=== PATIENT | female | born 1960 | race African-American/Black ===

== ENCOUNTER 2020-01-09 17:36 | Observation (INO) | payer OTHER ==
[2020-01-09] MEDS ORDERED: SODIUM CHLORIDE 1,000 ML IV STA (19:35)
[2020-01-09] MEDS ORDERED: chlordiazePOXIDE HCL 25 MG CAPSULE PO ONE (19:35)
[2020-01-09 20:07] LABS: EOS % 2.6 % (0-4.5); HEMATOCRIT 37.2 % (32.4-45.2); HEMOGLOBIN 11.9 GM/dL (10.7-15.3); LYMPH % 36.5 % (8-40); MCH 30.1 pg (25.7-33.7); MEAN CELL VOLUME 93.9 fl (80-96); MEAN PLT VOLUME 10.8 fl (7.5-11.1); MONO % 5.7 % (3.8-10.2); NEUT % 54.2 % (42.8-82.8); PLATELET COUNT 130 K/MM3 (134-434); RBC 3.97 M/mm3 (3.60-5.2); RDW 14.3 % (11.6-15.6); WHITE BLOOD COUNT 5.1 K/mm3 (4.0-10.0)
[2020-01-09] MEDS ORDERED: chlordiazePOXIDE HCL 25 MG CAPSULE ONE (20:12)
[2020-01-09] MEDS ORDERED: LORazepam 2 MG/ML SDV VIAL ONE (20:13)
[2020-01-09 20:39] LABS: CHLORIDE 105 mmol/L (98-107); POTASSIUM 4.1 mmol/L (3.5-5.1); SODIUM 139 mmol/L (136-145)
[2020-01-09 20:41] LABS: ALBUMIN 4.2 g/dl (3.4-5.0); CALCIUM 9.7 mg/dL (8.5-10.1)
[2020-01-09 20:42] LABS: ANION GAP 6 MMOL/L (8-16); BLOOD UREA NITROGEN 17.8 mg/dL (7-18); CO2 29 mmol/L (21-32); GLUCOSE,RANDOM 84 mg/dL (74-106)
[2020-01-09 20:44] LABS: SGPT/ALT 39 U/L (13-61)
[2020-01-09 20:45] LABS: CREATININE 0.9 mg/dL (0.55-1.3); SGOT/AST 26 U/L (15-37)
[2020-01-09 20:46] LABS: BILIRUBIN,TOTAL 1.4 mg/dL (0.2-1); TOT PROT 7.4 g/dl (6.4-8.2)
[2020-01-09 20:47] LABS: ALK PHOS 98 U/L (45-117)
[2020-01-09] MEDS ORDERED: LABETALOL HCL 5 MG/1 ML (100MG/20 ML VIAL) IVPUSH ONE (23:52)
[2020-01-10] MEDS ORDERED: chlordiazePOXIDE HCL 25 MG CAPSULE PO PRN (00:31)
[2020-01-10] MEDS ORDERED: chlordiazePOXIDE HCL 25 MG CAPSULE PO SCH (05:00)
[2020-01-10] MEDS ORDERED: chlordiazePOXIDE HCL 25 MG CAPSULE ONE (05:08)
[2020-01-10 07:04] LABS: BASO % 1.2 % (0-2.0); EOS % 4.3 % (0-4.5); HEMATOCRIT 37.4 % (32.4-45.2); HEMOGLOBIN 12.1 GM/dL (10.7-15.3); LYMPH % 35.9 % (8-40); MCH 30.4 pg (25.7-33.7); MCHC 32.3 g/dl (32.0-36.0); MEAN CELL VOLUME 94.2 fl (80-96); MEAN PLT VOLUME 10.8 fl (7.5-11.1); MONO % 5.3 % (3.8-10.2); NEUT % 53.3 % (42.8-82.8); PLATELET COUNT 129 K/MM3 (134-434); RBC 3.97 M/mm3 (3.60-5.2); RDW 14.3 % (11.6-15.6); WHITE BLOOD COUNT 3.7 K/mm3 (4.0-10.0)
[2020-01-10 07:44] LABS: POTASSIUM 4.2 mmol/L (3.5-5.1)
[2020-01-10 07:49] LABS: CALCIUM 9.2 mg/dL (8.5-10.1)
[2020-01-10 07:50] LABS: ALBUMIN 3.5 g/dl (3.4-5.0); BLOOD UREA NITROGEN 13.2 mg/dL (7-18); MAGNESIUM 2.1 mg/dL (1.8-2.4)
[2020-01-10 07:53] LABS: CREATININE 0.8 mg/dL (0.55-1.3); PHOSPHOROUS 4.3 mg/dL (2.5-4.9)
[2020-01-10 07:54] LABS: BILIRUBIN,TOTAL 1.3 mg/dL (0.2-1); TOT PROT 6.4 g/dl (6.4-8.2)
[2020-01-10] MEDS ORDERED: amLODIPine BESYLATE 10 MG TABLET (FP) PO ONE (08:02)
[2020-01-10] MEDS ORDERED: amLODIPine BESYLATE 5 MG TABLET (FP) ONE (09:05)
[2020-01-10] MEDS ORDERED: PT OWN MED DRAWER 7, Y5N ONE (09:35)
[2020-01-10] MEDS ORDERED: cloNIDine HCL 0.1 MG TABLET ONE (09:48)
[2020-01-10] MEDS ORDERED: FOLIC ACID 1 MG TABLET (FP) ONE (09:49)
[2020-01-10] MEDS ORDERED: ENOXAPARIN NA (PORCINE) 40 MG/0.4 ML DISP.SYRIN SQ ONE (09:49)
[2020-01-10] MEDS ORDERED: THIAMINE HCL 100 MG TABLET (FP) ONE (09:50)
[2020-01-10] MEDS ORDERED: MULTIVITAMINS (DAILY MVI) TABLET (FP) ONE (09:50)
[2020-01-10] MEDS ORDERED: FOLIC ACID 1 MG TABLET (FP) PO SCH (10:00)
[2020-01-10] MEDS ORDERED: cloNIDine HCL 0.1 MG TABLET PO SCH (10:00)
[2020-01-10] MEDS ORDERED: ENOXAPARIN NA (PORCINE) 40 MG/0.4 ML DISP.SYRIN SQ SCH (10:00)
[2020-01-10] MEDS ORDERED: MULTIVITAMINS (DAILY MVI) TABLET (FP) PO SCH (10:00)
[2020-01-10] MEDS ORDERED: THIAMINE HCL 100 MG TABLET (FP) PO SCH (10:00)
[2020-01-10] MEDS ORDERED: NICOTINE 7 MG/24 HOURS TOPICAL PATCH TD SCH (10:00)
[2020-01-10 11:13] LABS: URINE BARBITURATES NEGATIVE ng/ml (CUTOFF=200)
[2020-01-10 11:18] LABS: COCAINE, UR NEGATIVE ng/ml (CUTOFF=300); METHADONE, UR NEGATIVE ng/ml (CUTOFF=300); OPIATES, URI NEGATIVE ng/ml (CUTOFF=300); PHENCYCLIDINE,URINE NEGATIVE ng/ml (CUTOFF=25); URINE AMPHETAMINES NEGATIVE ng/ml (CUTOFF=500)
[2020-01-10 11:32] LABS: URINE BENZODIAZEPINES POSITIVE ng/ml (CUTOFF=200)
[2020-01-10 15:03] VITALS: BMI 18.3
[2020-01-10] MEDS: LABETALOL HCL 100 MG TABLET (FP) PO SCH ×2 (20:12→23:08)
[2020-01-10] MEDS: ATORVASTATIN CA 20 MG TABLET (FP) PO SCH ×2 (20:12→23:08)
[2020-01-10] MEDS ORDERED: LABETALOL HCL 200 MG TABLET (FP) PO SCH ×2 (22:00)
[2020-01-10] MEDS ORDERED: ATORVASTATIN CA 20 MG TABLET (FP) PO SCH (22:00)
[2020-01-11] MEDS ORDERED: chlordiazePOXIDE HCL 25 MG CAPSULE PO SCH (05:00)
[2020-01-11 08:18] LABS: BASO % 0.8 % (0-2.0); EOS % 4.1 % (0-4.5); HEMATOCRIT 35.4 % (32.4-45.2); HEMOGLOBIN 11.6 GM/dL (10.7-15.3); LYMPH % 35.6 % (8-40); MCH 30.6 pg (25.7-33.7); MCHC 32.6 g/dl (32.0-36.0); MEAN CELL VOLUME 93.9 fl (80-96); MEAN PLT VOLUME 10.4 fl (7.5-11.1); NEUT % 52.5 % (42.8-82.8); PLATELET COUNT 124 K/MM3 (134-434); RBC 3.78 M/mm3 (3.60-5.2); WHITE BLOOD COUNT 4.4 K/mm3 (4.0-10.0)
[2020-01-11 08:41] LABS: POTASSIUM 4.6 mmol/L (3.5-5.1)
[2020-01-11 08:43] LABS: ALBUMIN 3.6 g/dl (3.4-5.0); BLOOD UREA NITROGEN 15.6 mg/dL (7-18); CALCIUM 9.4 mg/dL (8.5-10.1)
[2020-01-11 08:46] LABS: BILIRUBIN,DIRECT 0.2 mg/dL (0.0-0.2); CREATININE 0.9 mg/dL (0.55-1.3)
[2020-01-11 08:48] LABS: BILIRUBIN,TOTAL 0.8 mg/dL (0.2-1); TOT PROT 6.4 g/dl (6.4-8.2)
[2020-01-11] MEDS: LABETALOL HCL 100 MG TABLET (FP) PO SCH (09:30)
[2020-01-11] MEDS ORDERED: amLODIPine BESYLATE 10 MG TABLET (FP) PO SCH ×2 (10:00)
[2020-01-11] MEDS ORDERED: MULTIVITAMINS (DAILY MVI) TABLET (FP) PO SCH (10:00)
[2020-01-11] MEDS ORDERED: NICOTINE 7 MG/24 HOURS TOPICAL PATCH TD SCH (10:00)
[2020-01-11] MEDS ORDERED: ENOXAPARIN NA (PORCINE) 40 MG/0.4 ML DISP.SYRIN SQ SCH (10:00)
[2020-01-11] MEDS ORDERED: THIAMINE HCL 100 MG TABLET (FP) PO SCH (10:00)
[2020-01-11] MEDS ORDERED: FOLIC ACID 1 MG TABLET (FP) PO SCH (10:00)
[2020-01-11 15:36] VITALS: BP 154/64; PULSE 92; TEMP 98.4
[2020-01-12] MEDS ORDERED: chlordiazePOXIDE HCL 10 MG CAPSULE PO PRN
[2020-01-12] MEDS ORDERED: chlordiazePOXIDE HCL 10 MG CAPSULE PO SCH (05:00)
[2020-01-13] MEDS ORDERED: chlordiazePOXIDE HCL 10 MG CAPSULE PO SCH (05:00)
[2020-01-14] MEDS ORDERED: chlordiazePOXIDE HCL 10 MG CAPSULE PO ONE (05:00)
== END 2020-01-11 15:57 | disposition short-term general hospital (02) ==
LOC: JER 17:36 → JERBED 21:19 → INTOOBSV 21:19 → J8W 01-10 14:40
PROVIDERS: ADMIT Internal Medicine; ATTEND Internal Medicine
PROC: 3E023GC Introduction of Other Therapeutic Substance into Muscle, Percutaneous Approach (ICD-10-PCS; principal; 2020-01-09)
PROC: 3E033GC Introduction of Other Therapeutic Substance into Peripheral Vein, Percutaneous Approach (ICD-10-PCS; 2020-01-09)
PROC: 3E033NZ Introduction of Analgesics, Hypnotics, Sedatives into Peripheral Vein, Percutaneous Approach (ICD-10-PCS; 2020-01-09)
PROC: 3E0337Z Introduction of Electrolytic and Water Balance Substance into Peripheral Vein, Percutaneous Approach (ICD-10-PCS; 2020-01-09)
DX: I16.0 Hypertensive urgency (principal); Z85.841 Personal history of malignant neoplasm of brain; R47.89 Other speech disturbances; F10.10 Alcohol abuse, uncomplicated; Z29.9 Encounter for prophylactic measures, unspecified; R25.1 Tremor, unspecified; R49.0 Dysphonia; E80.6 Other disorders of bilirubin metabolism; F17.210 Nicotine dependence, cigarettes, uncomplicated
CPT/HCPCS: 36415; 71046-TC-FY; 80053; 80061; 80307; 82248; 83721; 83735; 84100; 84484; 85025; 93005; 93010; 96361; 96372; 96375; 99285-25; C9803; G0378; J0735; U0003

== ENCOUNTER 2020-01-11 15:50 | Inpatient (IN) | payer OTHER ==
[2020-01-11 16:31] VITALS: BMI 19.2
[2020-01-11] MEDS ORDERED: MAG HYDROX/AL HYDROX/SIMETH 30 ML UNIT-DOSE CUP PO PRN (16:56)
[2020-01-11] MEDS ORDERED: NICOTINE POLACRILEX 2 MG GUM BC PRN (16:56)
[2020-01-11] MEDS ORDERED: MAGNESIUM HYDROX 2400MG/30ML ORAL SUSPENSION 30 ML CUP PO PRN (16:56)
[2020-01-11] MEDS ORDERED: IBUPROFEN 400 MG TABLET (FP) PO PRN (16:56)
[2020-01-11] MEDS ORDERED: ACETAMINOPHEN 325 MG TABLET (FP) PO PRN (16:56)
[2020-01-11] MEDS ORDERED: P-EPHED 60MG/TRIPROLIDI 2.5MG TABLET PO PRN (16:56)
[2020-01-11] MEDS ORDERED: MAGNESIUM CITRATE 300 ML BOTTLE PO PRN (16:56)
[2020-01-11] MEDS ORDERED: LOPERAMIDE HCL 2 MG CAPSULE PO PRN (16:56)
[2020-01-11] MEDS ORDERED: guaiFENesin 200 MG/10 ML 10 ML UNIT-DOSE CUPS PO PRN (16:56)
[2020-01-11] MEDS ORDERED: cloNIDine HCL 0.1 MG TABLET PO ONE (17:45)
[2020-01-11] MEDS: hydrOXYzine PAMOATE 25 MG CAPSULE (FP) PO SCH ×2 (18:34→21:28)
[2020-01-11] MEDS ORDERED: PT OWN MED DRAWER 7, Y5N ONE ×2 (21:00→23:55)
[2020-01-11] MEDS: MELATONIN 5 MG TABLETS PO SCH (21:28)
[2020-01-11] MEDS: THIAMINE HCL 100 MG TABLET (FP) PO SCH (21:29)
[2020-01-11] MEDS: LABETALOL HCL 100 MG TABLET (FP) PO SCH (23:07)
[2020-01-12] MEDS: hydrOXYzine PAMOATE 25 MG CAPSULE (FP) PO SCH ×5 (06:42→21:48)
[2020-01-12] MEDS: LABETALOL HCL 100 MG TABLET (FP) PO SCH ×2 (09:54→21:48)
[2020-01-12] MEDS: PRENATAL VITAMINS W/ FOLIC ACID TABLET (FP) PO SCH (09:55)
[2020-01-12] MEDS: amLODIPine BESYLATE 10 MG TABLET (FP) PO SCH (09:55)
[2020-01-12] MEDS: NICOTINE 14 MG/24 HOURS TOPICAL PATCH TD SCH (09:55)
[2020-01-12 11:53] LABS: URINE APPEARANCE CLEAR; URINE BILIRUBIN NEGATIVE (NEGATIVE); URINE COLOR YELLOW; URINE GLUCOSE (UA) NEGATIVE (NEGATIVE); URINE KETONE NEGATIVE (NEGATIVE); URINE LEUK ESTERASE NEGATIVE (NEGATIVE); URINE NITRITE NEGATIVE (NEGATIVE); URINE PROTEIN NEGATIVE (NEGATIVE); URINE UROBILINOGEN 0.2 mg/dL (0.2-1.0)
[2020-01-12 11:57] LABS: POTASSIUM 4.5 mmol/L (3.5-5.1)
[2020-01-12 12:06] LABS: ALBUMIN 3.8 g/dl (3.4-5.0); BLOOD UREA NITROGEN 15.3 mg/dL (7-18); CALCIUM 9.5 mg/dL (8.5-10.1)
[2020-01-12 12:10] LABS: CREATININE 0.9 mg/dL (0.55-1.3)
[2020-01-12 12:11] LABS: BILIRUBIN,TOTAL 1.1 mg/dL (0.2-1)
[2020-01-12 12:29] LABS: SICKLE CELL SCREEN NEGATIVE (NEGATIVE)
[2020-01-12 12:34] LABS: HEMATOCRIT 37.6 % (32.4-45.2); HEMOGLOBIN 12.1 GM/dL (10.7-15.3); MCH 30.3 pg (25.7-33.7); MCHC 32.1 g/dl (32.0-36.0); MEAN CELL VOLUME 94.3 fl (80-96); MEAN PLT VOLUME 11.4 fl (7.5-11.1); PLATELET COUNT 143 K/MM3 (134-434); RBC 3.98 M/mm3 (3.60-5.2); RDW 14.2 % (11.6-15.6); WHITE BLOOD COUNT 4.5 K/mm3 (4.0-10.0)
[2020-01-12] MEDS ORDERED: PT OWN MED DRAWER 7, Y5N ONE (19:18)
[2020-01-12] MEDS: THIAMINE HCL 100 MG TABLET (FP) PO SCH (21:48)
[2020-01-12] MEDS: MELATONIN 5 MG TABLETS PO SCH (21:49)
[2020-01-13] MEDS: hydrOXYzine PAMOATE 25 MG CAPSULE (FP) PO SCH ×5 (06:31→21:34)
[2020-01-13] MEDS: PRENATAL VITAMINS W/ FOLIC ACID TABLET (FP) PO SCH (10:07)
[2020-01-13] MEDS: LABETALOL HCL 100 MG TABLET (FP) PO SCH ×2 (10:07→21:32)
[2020-01-13] MEDS: NICOTINE 14 MG/24 HOURS TOPICAL PATCH TD SCH (10:08)
[2020-01-13] MEDS: amLODIPine BESYLATE 10 MG TABLET (FP) PO SCH (10:08)
[2020-01-13] MEDS ORDERED: PT OWN MED DRAWER 7, Y5N ONE ×2 (11:25→20:51)
[2020-01-13] MEDS: THIAMINE HCL 100 MG TABLET (FP) PO SCH (21:32)
[2020-01-13] MEDS: MELATONIN 5 MG TABLETS PO SCH (21:32)
[2020-01-14] MEDS: hydrOXYzine PAMOATE 25 MG CAPSULE (FP) PO SCH ×2 (06:56→10:00)
[2020-01-14] MEDS: PRENATAL VITAMINS W/ FOLIC ACID TABLET (FP) PO SCH (09:59)
[2020-01-14] MEDS: amLODIPine BESYLATE 10 MG TABLET (FP) PO SCH (09:59)
[2020-01-14] MEDS: LABETALOL HCL 100 MG TABLET (FP) PO SCH ×2 (09:59→21:39)
[2020-01-14] MEDS: NICOTINE 14 MG/24 HOURS TOPICAL PATCH TD SCH (10:00)
[2020-01-14] MEDS: hydrOXYzine PAMOATE 25 MG CAPSULE (FP) PO PRN (21:39)
[2020-01-14] MEDS: THIAMINE HCL 100 MG TABLET (FP) PO SCH (21:39)
[2020-01-14] MEDS: MELATONIN 5 MG TABLETS PO SCH (21:39)
[2020-01-15] MEDS ORDERED: PT OWN MED DRAWER 7, Y5N ONE ×2 (09:27→21:43)
[2020-01-15] MEDS: hydrOXYzine PAMOATE 25 MG CAPSULE (FP) PO PRN (10:19)
[2020-01-15] MEDS: amLODIPine BESYLATE 10 MG TABLET (FP) PO SCH (10:19)
[2020-01-15] MEDS: NICOTINE 14 MG/24 HOURS TOPICAL PATCH TD SCH (10:20)
[2020-01-15] MEDS: PRENATAL VITAMINS W/ FOLIC ACID TABLET (FP) PO SCH (10:20)
[2020-01-15] MEDS: LABETALOL HCL 100 MG TABLET (FP) PO SCH ×2 (10:21→21:43)
[2020-01-15] MEDS: THIAMINE HCL 100 MG TABLET (FP) PO SCH (21:42)
[2020-01-15] MEDS: MELATONIN 5 MG TABLETS PO SCH (21:42)
[2020-01-15] MEDS ORDERED: TUBERCULIN PPD 5 TU/0.1ML VIAL ID ONE (23:52)
[2020-01-16] MEDS: PRENATAL VITAMINS W/ FOLIC ACID TABLET (FP) PO SCH (09:27)
[2020-01-16] MEDS: NICOTINE 14 MG/24 HOURS TOPICAL PATCH TD SCH (09:28)
[2020-01-16] MEDS: amLODIPine BESYLATE 10 MG TABLET (FP) PO SCH (09:28)
[2020-01-16] MEDS: LABETALOL HCL 100 MG TABLET (FP) PO SCH ×2 (09:28→21:26)
[2020-01-16] MEDS: MELATONIN 5 MG TABLETS PO SCH (21:26)
[2020-01-16] MEDS: THIAMINE HCL 100 MG TABLET (FP) PO SCH (21:26)
[2020-01-17] MEDS ORDERED: PT OWN MED DRAWER 7, Y5N ONE (08:15)
[2020-01-17] MEDS: PRENATAL VITAMINS W/ FOLIC ACID TABLET (FP) PO SCH (09:47)
[2020-01-17] MEDS: amLODIPine BESYLATE 10 MG TABLET (FP) PO SCH (09:47)
[2020-01-17] MEDS: LABETALOL HCL 100 MG TABLET (FP) PO SCH ×2 (09:47→21:19)
[2020-01-17] MEDS: NICOTINE 14 MG/24 HOURS TOPICAL PATCH TD SCH (09:48)
[2020-01-17] MEDS: METHYL SALICYLATE/MENTHOL OINT 30 GM TUBE TP SCH ×2 (10:50→21:20)
[2020-01-17] MEDS: hydrOXYzine PAMOATE 25 MG CAPSULE (FP) PO PRN (21:19)
[2020-01-17] MEDS: THIAMINE HCL 100 MG TABLET (FP) PO SCH (21:19)
[2020-01-17] MEDS: MELATONIN 5 MG TABLETS PO SCH (21:19)
[2020-01-18] MEDS ORDERED: PT OWN MED DRAWER 7, Y5N ONE (08:23)
[2020-01-18] MEDS: LABETALOL HCL 100 MG TABLET (FP) PO SCH ×2 (09:40→21:21)
[2020-01-18] MEDS: amLODIPine BESYLATE 10 MG TABLET (FP) PO SCH (09:40)
[2020-01-18] MEDS: PRENATAL VITAMINS W/ FOLIC ACID TABLET (FP) PO SCH (09:40)
[2020-01-18] MEDS: NICOTINE 14 MG/24 HOURS TOPICAL PATCH TD SCH (09:40)
[2020-01-18] MEDS: METHYL SALICYLATE/MENTHOL OINT 30 GM TUBE TP SCH ×2 (09:40→21:18)
[2020-01-18] MEDS: THIAMINE HCL 100 MG TABLET (FP) PO SCH (21:21)
[2020-01-18] MEDS: MELATONIN 5 MG TABLETS PO SCH (21:21)
[2020-01-19] MEDS: PRENATAL VITAMINS W/ FOLIC ACID TABLET (FP) PO SCH (10:07)
[2020-01-19] MEDS: LABETALOL HCL 100 MG TABLET (FP) PO SCH ×2 (10:07→21:52)
[2020-01-19] MEDS: amLODIPine BESYLATE 10 MG TABLET (FP) PO SCH (10:07)
[2020-01-19] MEDS: METHYL SALICYLATE/MENTHOL OINT 30 GM TUBE TP SCH ×2 (10:07→21:53)
[2020-01-19] MEDS: NICOTINE 14 MG/24 HOURS TOPICAL PATCH TD SCH (10:07)
[2020-01-19] MEDS: THIAMINE HCL 100 MG TABLET (FP) PO SCH (21:52)
[2020-01-19] MEDS: MELATONIN 5 MG TABLETS PO SCH (21:53)
[2020-01-20] MEDS: PRENATAL VITAMINS W/ FOLIC ACID TABLET (FP) PO SCH (09:57)
[2020-01-20] MEDS: METHYL SALICYLATE/MENTHOL OINT 30 GM TUBE TP SCH ×2 (09:58→21:19)
[2020-01-20] MEDS: NICOTINE 14 MG/24 HOURS TOPICAL PATCH TD SCH (09:58)
[2020-01-20] MEDS: amLODIPine BESYLATE 10 MG TABLET (FP) PO SCH (09:58)
[2020-01-20] MEDS: LABETALOL HCL 100 MG TABLET (FP) PO SCH ×2 (09:58→21:18)
[2020-01-20] MEDS: THIAMINE HCL 100 MG TABLET (FP) PO SCH (21:18)
[2020-01-20] MEDS: MELATONIN 5 MG TABLETS PO SCH (21:18)
[2020-01-21] MEDS: NICOTINE 14 MG/24 HOURS TOPICAL PATCH TD SCH (10:24)
[2020-01-21] MEDS: METHYL SALICYLATE/MENTHOL OINT 30 GM TUBE TP SCH ×2 (10:24→21:50)
[2020-01-21] MEDS: amLODIPine BESYLATE 10 MG TABLET (FP) PO SCH (10:24)
[2020-01-21] MEDS: LABETALOL HCL 100 MG TABLET (FP) PO SCH ×2 (10:24→21:49)
[2020-01-21] MEDS: PRENATAL VITAMINS W/ FOLIC ACID TABLET (FP) PO SCH (10:24)
[2020-01-21] MEDS: THIAMINE HCL 100 MG TABLET (FP) PO SCH (21:49)
[2020-01-21] MEDS: MELATONIN 5 MG TABLETS PO SCH (21:50)
[2020-01-22] MEDS ORDERED: PT OWN MED DRAWER 7, Y5N ONE ×2 (09:06→21:20)
[2020-01-22] MEDS: amLODIPine BESYLATE 10 MG TABLET (FP) PO SCH (10:34)
[2020-01-22] MEDS: LABETALOL HCL 100 MG TABLET (FP) PO SCH ×2 (10:34→21:20)
[2020-01-22] MEDS: PRENATAL VITAMINS W/ FOLIC ACID TABLET (FP) PO SCH (10:34)
[2020-01-22] MEDS: NICOTINE 14 MG/24 HOURS TOPICAL PATCH TD SCH (10:35)
[2020-01-22] MEDS: METHYL SALICYLATE/MENTHOL OINT 30 GM TUBE TP SCH ×2 (10:35→21:21)
[2020-01-22] MEDS: THIAMINE HCL 100 MG TABLET (FP) PO SCH (21:20)
[2020-01-22] MEDS: MELATONIN 5 MG TABLETS PO SCH (21:20)
[2020-01-23] MEDS ORDERED: PT OWN MED DRAWER 7, Y5N ONE ×2 (08:59→19:14)
[2020-01-23] MEDS: LABETALOL HCL 100 MG TABLET (FP) PO SCH ×2 (10:18→21:30)
[2020-01-23] MEDS: PRENATAL VITAMINS W/ FOLIC ACID TABLET (FP) PO SCH (10:18)
[2020-01-23] MEDS: amLODIPine BESYLATE 10 MG TABLET (FP) PO SCH (10:18)
[2020-01-23] MEDS: METHYL SALICYLATE/MENTHOL OINT 30 GM TUBE TP SCH ×2 (10:19→21:30)
[2020-01-23] MEDS: NICOTINE 14 MG/24 HOURS TOPICAL PATCH TD SCH (10:19)
[2020-01-23] MEDS: MELATONIN 5 MG TABLETS PO SCH (21:29)
[2020-01-23] MEDS: THIAMINE HCL 100 MG TABLET (FP) PO SCH (21:29)
[2020-01-24] MEDS ORDERED: PT OWN MED DRAWER 7, Y5N ONE ×2 (09:11→21:13)
[2020-01-24] MEDS: NICOTINE 14 MG/24 HOURS TOPICAL PATCH TD SCH (10:31)
[2020-01-24] MEDS: amLODIPine BESYLATE 10 MG TABLET (FP) PO SCH (10:31)
[2020-01-24] MEDS: PRENATAL VITAMINS W/ FOLIC ACID TABLET (FP) PO SCH (10:32)
[2020-01-24] MEDS: LABETALOL HCL 100 MG TABLET (FP) PO SCH ×2 (10:32→21:13)
[2020-01-24] MEDS: METHYL SALICYLATE/MENTHOL OINT 30 GM TUBE TP SCH ×2 (10:32→21:13)
[2020-01-24] MEDS: hydrOXYzine PAMOATE 25 MG CAPSULE (FP) PO PRN ×2 (10:33→21:14)
[2020-01-24] MEDS: MELATONIN 5 MG TABLETS PO SCH (21:12)
[2020-01-24] MEDS: THIAMINE HCL 100 MG TABLET (FP) PO SCH (21:12)
[2020-01-25 07:25] VITALS: BP 106/76; PULSE 67; TEMP 97.3
[2020-01-25] MEDS ORDERED: PT OWN MED DRAWER 7, Y5N ONE (09:02)
[2020-01-25] MEDS: LABETALOL HCL 100 MG TABLET (FP) PO SCH (09:15)
[2020-01-25] MEDS: METHYL SALICYLATE/MENTHOL OINT 30 GM TUBE TP SCH (09:15)
[2020-01-25] MEDS: PRENATAL VITAMINS W/ FOLIC ACID TABLET (FP) PO SCH (09:15)
[2020-01-25] MEDS: amLODIPine BESYLATE 10 MG TABLET (FP) PO SCH (09:15)
[2020-01-25] MEDS: NICOTINE 14 MG/24 HOURS TOPICAL PATCH TD SCH (09:15)
[2020-01-25] MEDS: hydrOXYzine PAMOATE 25 MG CAPSULE (FP) PO PRN (09:16)
== END 2020-01-25 10:40 | disposition home or self-care (01) | DRG 772 ==
LOC: YASAS 15:50 → Y3E 17:34 → Y3W 01-18 13:42
PROVIDERS: ADMIT Allergy & Immunology; ATTEND Allergy & Immunology
PROC: HZ42ZZZ Group Counseling for Substance Abuse Treatment, Cognitive-Behavioral (ICD-10-PCS; principal; 2020-01-11)
DX: F10.20 Alcohol dependence, uncomplicated (principal); F17.210 Nicotine dependence, cigarettes, uncomplicated; F41.9 Anxiety disorder, unspecified; I16.0 Hypertensive urgency; E78.5 Hyperlipidemia, unspecified; R47.89 Other speech disturbances; Z85.841 Personal history of malignant neoplasm of brain; Z98.890 Other specified postprocedural states
CPT/HCPCS: 36415; 80053; 81003; 85027; 85660; 86780; J0735